=== PATIENT | female | born 2005 | race Caucasian/White ===

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

== ENCOUNTER → 2023-01-12 | Outpatient (CLI) | payer OTHER ==
--- NOTE | 2023-01-12 17:23 | XR ---
EXAMINATION TYPE: XR shoulder complete 3 views LT DATE OF EXAM: 01/12/2023 Comparison: None Clinical History: 17-year-old female M25.512 Pain left shoulder Findings: AC joint is intact and congruent. Subacromial space is preserved. No tendinous or bursal calcificatio ns. No acute fracture, subluxation or dislocation. Impression: No acute osseous abnormality seen.
== END | disposition home or self-care (01) ==
LOC: RADXRMAIN 12:17
PROVIDERS: ATTEND Registered Nurse
DX: M25.512 Pain in left shoulder (principal)

== ENCOUNTER → 2023-06-07 | Outpatient (CLI) | payer OTHER ==
--- NOTE | 2023-06-07 18:01 | CT ---
EXAMINATION TYPE: CT neck chest w con CT DLP: 517.4 mGycm, Automated exposure control for dose reduction was used. DATE OF EXAM: 06/07/2023 5:11 PM COMPARISON: CT chest 12/01/2021. CLINICAL INDICATION:Female, 17 years old with history of R06.02 SOB J98.59 MEDIASTINAL MASS;, c/o gris st tightness and asthma TECHNIQUE: Standard enhanced CT of the neck and chest. Axial sections with coronal and sagittal refo rmats were obtained. Contrast used:100 mL of Isovue 300 with IV Contrast, (none if empty) Oral contrast used: (none if empty) FINDINGS: Brain: Visualized portions are grossly unremarkable. Orbits: Unremarkable Sinuses: Grossly unremarkable. Suprahyoid Neck: The oropharynx, oral cavity, parapharyngeal and retropharyngeal spaces are clear and symmetric. The nasopharynx is unremarkable. Infrahyoid Neck: The larynx, hypopharynx, and supraglottic area are clear and symmetric. Parotid Glands: Unremarkable. Submandibular Glands: Unremarkable. Musculoskeletal: No acute osseous pathology. Lymph nodes: No pathologically enlarged lymph nodes identified.. Vascular structures: Visualized major arteries are patent without evidence of aneurysm. Thoracic Inlet/airway: Airway is patent. The lung apices are clear. Soft tissues/Thyroid: Thyroid and remainder of the soft tissues are unremarkable. Other: none. LUNGS/ PLEURA: No pleural effusion, pneumothorax, focal consolidation. Stable 2 mm right lower lobe pulmonary nodule (series 6, image 41). No new or enlarging pulmonary nodules. AIRWAY: Patent and unremarkable. HEART: Size within normal limits. No pericardial effusion. MEDIASTINUM: No evidence of adenopathy. Redemonstration of residual thymic tissue in the prevascular space. VASCULATURE: No aortic aneurysm. MUSCULOSKELETAL: No acute osseous abnormalities. No aggressive osseous lesion. SOFT TISSUES/LYMPH NODES: Unremarkable. LOWER NECK: No significant findings. UPPER ABDOMEN: No significant findings. IMPRESSION 1. No CT evidence for acute process. 2. Stable right lower lobe 2 mm pulmonary nodule of doubtful clinical significance. 3. Stable residual thymic tissue in the prevascular space.
== END | disposition home or self-care (01) ==
LOC: RADCTMAIN 16:25
DX: R06.02 Shortness of breath (principal); J98.59 Other diseases of mediastinum, not elsewhere classified; R94.2 Abnormal results of pulmonary function studies; R91.1 Solitary pulmonary nodule
CPT/HCPCS: 70491; 71260; Q9967

== ENCOUNTER → 2024-01-17 | Outpatient (CLI) | payer OTHER ==
--- NOTE | 2024-01-18 00:32 | XR ---
EXAMINATION TYPE: XR abdomen complete w decub DATE OF EXAM: 01/17/2024 COMPARISON: 04/13/2021 INDICATION: Fever pain nausea diarrhea TECHNIQUE: Abdomen is examined in supine and upright view. Left lateral decubitus view was obtained. FINDINGS: There is a normal bowel gas pattern. No free air is evident. No differential air-fluid levels are pre sent. No mass effect is evident. Psoas margins are normal. No organomegaly is present. IMPRESSION: 1. No acute abdomen changes
== END | disposition home or self-care (01) ==
LOC: LABWHC1 12:05
PROVIDERS: ATTEND Internal Medicine Gastroenterology
DX: R10.9 Unspecified abdominal pain (principal)
CPT/HCPCS: 74021